=== PATIENT | male | born 1965 | race Two or more races ===

== ENCOUNTER 2019-01-21 16:11 | Inpatient (IN) | payer OTHER ==
[~2019-01-21] VITALS: Ht 172.7 cm; Wt 96.2 kg
--- NOTE | 2019-01-21 17:20 | NUR ---
Admitted from home, with previous admission from [facility]. Admitted for Right Knee arthroplasty, Osteoarthritis Right knee. Patient awake, alert x4. Not in any form of distress. Patient with original surgical dressing over right knee dry clean and intact no S/S of infection. Oriented patient about equipment and therapy. Informed Dr Jarquin of admission.
[2019-01-21] MEDS ORDERED: Z GUARD REMEDY PASTE 57 GM TUBE TOP PRN (17:30)
[2019-01-21] MEDS ORDERED: HYDR-3326 PO (17:43)
[2019-01-21] MEDS ORDERED: MULT1TAB73 PO (17:43)
[2019-01-21] MEDS ORDERED: IBUP-1955 PO (17:43)
[2019-01-21] MEDS ORDERED: FURO40TA5 PO (17:43)
[2019-01-21] MEDS ORDERED: SPIR25TA6 PO (17:43)
[2019-01-21] MEDS ORDERED: ASPI-612 PO (17:43)
[2019-01-21] MEDS ORDERED: MAGN400O6 PO (17:43)
[2019-01-21] MEDS ORDERED: ACET-2154 PO (17:43)
[2019-01-21] MEDS ORDERED: DOCU-141 PO (17:43)
[2019-01-21] MEDS ORDERED: LANS30CA54 PO (17:43)
[2019-01-21 18:28] VITALS: BP 116/74
--- NOTE | 2019-01-21 19:03 | NUR ---
Dr Tate aware of admission and requested for medication reconciliation.
[2019-01-21 20:02] VITALS: BP 138/75
[2019-01-21] MEDS: OXYCODONE HCL 5 MG TABLET PO PRN (20:21)
--- NOTE | 2019-01-21 21:43 | NUR ---
Received pt in bed, AAO x 4 watching television in bed. No acute distress noted. Verbally responsive and able to make needs known. PRN Oxyir 10 mg given as ordered by Dr. Jarquin for pain 8/10 pain scale on right knee. Tolerated well with good effect. Dr. Tate aware of med recon. All safety measures and fall precautions maintained. Call light and all personal belongings within reach. Will continue to monitor.
[2019-01-21] MEDS ORDERED: ACETAMINOPHEN 325 MG TABLET PO PRN (22:00)
[2019-01-22 05:10] VITALS: BP 120/75
[2019-01-22 08:16] VITALS: BP 121/76
[2019-01-22] MEDS: SPIRONOLACTONE 25 MG TABLET PO SCH (08:38)
[2019-01-22] MEDS: DOCUSATE SODIUM 100 MG CAPSULE PO SCH (08:38)
[2019-01-22] MEDS: FUROSEMIDE 40 MG TABLET PO SCH (08:38)
[2019-01-22] MEDS: MULTIVITAMINS,THERAPEUTIC TABLET PO SCH (08:38)
[2019-01-22] MEDS: OXYCODONE HCL 5 MG TABLET PO PRN ×2 (08:39→14:59)
[2019-01-22] MEDS: ASPIRIN 325 MG TABLET PO SCH ×2 (08:46→16:12)
--- NOTE | 2019-01-22 14:57 | NUR ---
INTERDISCIPLINARY TEAM CONFERENCE
[2019-01-22 16:51] VITALS: BP 135/67
[2019-01-22] MEDS: MAGNESIUM HYDROXIDE 30 ML LIQUID UDC PO PRN (21:03)
[2019-01-23] MEDS: OXYCODONE HCL 5 MG TABLET PO PRN ×3 (05:35→20:28)
[2019-01-23 07:12] VITALS: BP 120/71
--- NOTE | 2019-01-23 07:45 | NUR ---
Patient awake, alert, not in any form of acute distress. No complain of any pain or discomfort at this time. Assisted with his needs. Call light and frequently used items placed within reach.
[2019-01-23 07:56] LABS: BASOPHILS % (AUTO) 0.6 % (0.0-2.0); EOSINOPHILS # (AUTO) 0.2 K/uL (0.0-0.7); EOSINOPHILS % (AUTO) 4.5 % (0.0-7.0); HEMATOCRIT 29.1 % (36.7-47.1); HEMOGLOBIN 9.8 g/dL (12.5-16.3); LYMPHOCYTES # (AUTO) 1.5 K/uL (20.0-40.0); LYMPHOCYTES % (AUTO) 28.8 % (20.5-51.5); MEAN CORPUSCULAR HEMOGLOBIN 27.6 uug (23.8-33.4); MEAN CORPUSCULAR HGB CONC 34 g/dL (32.5-36.3); MONOCYTES # (AUTO) 0.9 K/uL (2.0-10.0); MONOCYTES % (AUTO) 17.4 % (0.0-11.0); NEUTROPHILS # (AUTO) 2.5 K/uL (1.8-8.9); NEUTROPHILS % (AUTO) 48.7 % (38.5-71.5); PLATELET COUNT (AUTO) 191 K/uL (152-348); RED BLOOD CELL COUNT(AUTO) 3.55 MIL/uL (4.06-5.63); WHITE BLOOD COUNT (AUTO) 5.2 K/uL (3.6-10.2)
[2019-01-23 08:11] LABS: BILIRUBIN,TOTAL 0.6 mg/dL (0.2-1.0); CREATININE 0.8 mg/dL (0.6-1.3); PHOSPHOROUS 4.3 mg/dL (2.5-4.9); POTASSIUM 4.1 mmol/L (3.5-5.1)
[2019-01-23 08:18] VITALS: BP 126/76
[2019-01-23 08:19] LABS: THYROID STIMULATING HORMONE 3.607 mIU/mL (0.358-3.740)
[2019-01-23 08:39] LABS: EOSINOPHILS % (MANUAL) 7 % (0-8); LYMPHOCYTES % (MANUAL) 30 % (20-40); MONOCYTES % (MANUAL) 12 % (2-10); NEUTROPHILS % (MANUAL) 51 % (42-75)
[2019-01-23] MEDS: SPIRONOLACTONE 25 MG TABLET PO SCH (08:57)
[2019-01-23] MEDS: FUROSEMIDE 40 MG TABLET PO SCH (08:57)
[2019-01-23] MEDS: DOCUSATE SODIUM 100 MG CAPSULE PO SCH (08:57)
[2019-01-23] MEDS: MULTIVITAMINS,THERAPEUTIC TABLET PO SCH (08:57)
[2019-01-23] MEDS: ASPIRIN 325 MG TABLET PO SCH ×2 (08:57→16:23)
[2019-01-23 18:50] VITALS: BP 121/85
[2019-01-23] MEDS: MAGNESIUM HYDROXIDE 30 ML LIQUID UDC PO PRN (20:26)
[2019-01-23] MEDS: ATORVASTATIN 10 MG TABLET PO SCH (21:07)
[2019-01-23 21:24] VITALS: BP 116/68
[2019-01-24 05:00] VITALS: BP 113/74
[2019-01-24 07:06] VITALS: BP 120/67
[2019-01-24] MEDS: DOCUSATE SODIUM 100 MG CAPSULE PO SCH (08:40)
[2019-01-24] MEDS: MULTIVITAMINS,THERAPEUTIC TABLET PO SCH (08:40)
[2019-01-24] MEDS: ASPIRIN 325 MG TABLET PO SCH ×2 (08:40→17:22)
[2019-01-24] MEDS: SPIRONOLACTONE 25 MG TABLET PO SCH (08:40)
[2019-01-24] MEDS: FUROSEMIDE 40 MG TABLET PO SCH (08:40)
[2019-01-24] MEDS: OXYCODONE HCL 5 MG TABLET PO PRN ×3 (08:40→20:38)
--- NOTE | 2019-01-24 13:44 | NUR ---
INDIVIDUALIZE OVERALL PLAN OF CARE
[2019-01-24 14:00] VITALS: BP 109/70
[2019-01-24 20:15] VITALS: BP 124/62
[2019-01-24] MEDS: MAGNESIUM HYDROXIDE 30 ML LIQUID UDC PO PRN (20:35)
[2019-01-24] MEDS: ATORVASTATIN 10 MG TABLET PO SCH (20:35)
--- NOTE | 2019-01-24 21:16 | NUR ---
Received pt resting in bed and watching TV. AAO x4. No acute distress noted. C/o 03/03 on right knee, PRN pain med and other due med given as ordered. Safety measures maintained. Call light and personal belongings within reach. Will continue to monitor.
[2019-01-25 04:53] VITALS: BP 108/67
[2019-01-25 07:46] VITALS: BP 106/59
[2019-01-25] MEDS: DOCUSATE SODIUM 100 MG CAPSULE PO SCH (08:49)
[2019-01-25] MEDS: MULTIVITAMINS,THERAPEUTIC TABLET PO SCH (08:49)
[2019-01-25] MEDS: ASPIRIN 325 MG TABLET PO SCH ×2 (08:50→17:16)
[2019-01-25] MEDS: FUROSEMIDE 40 MG TABLET PO SCH (08:50)
[2019-01-25] MEDS: SPIRONOLACTONE 25 MG TABLET PO SCH (08:50)
[2019-01-25] MEDS: OXYCODONE HCL 5 MG TABLET PO PRN ×3 (08:50→20:34)
--- NOTE | 2019-01-25 10:55 | NUR ---
Received patient in bed, alert and orientedx4. Continue on pain management oxycodone 10mg every 4 hours if needed and prior to therapy. Complaint of right knee pain scale 7/10. Oxy 10mg given with good effect. tolerated well. not in distress. will continue monitor
[2019-01-25 16:07] VITALS: BP 118/70
[2019-01-25] MEDS: ATORVASTATIN 10 MG TABLET PO SCH (20:34)
--- NOTE | 2019-01-25 21:23 | NUR ---
Received pt resting in bed. AAO x4. No acute distress noted. C/o 7/10 pain on right knee. PRN pain med and other due med given as ordered. Safety measures maintained. Call light and personal belongings within reach. Will continue to monitor.
[2019-01-25 21:28] VITALS: BP 136/83
[2019-01-26 06:15] VITALS: BP 110/65
[2019-01-26 07:30] VITALS: BP 110/67
[2019-01-26] MEDS: OXYCODONE HCL 5 MG TABLET PO PRN ×3 (07:56→20:19)
[2019-01-26] MEDS: FUROSEMIDE 40 MG TABLET PO SCH (08:00)
[2019-01-26] MEDS: SPIRONOLACTONE 25 MG TABLET PO SCH (08:00)
[2019-01-26] MEDS: ASPIRIN 325 MG TABLET PO SCH ×2 (08:00→16:51)
[2019-01-26] MEDS: MULTIVITAMINS,THERAPEUTIC TABLET PO SCH (08:00)
[2019-01-26] MEDS: DOCUSATE SODIUM 100 MG CAPSULE PO SCH (08:04)
[2019-01-26] MEDS: MAGNESIUM HYDROXIDE 30 ML LIQUID UDC PO PRN (16:54)
[2019-01-26 17:17] VITALS: BP 121/72
[2019-01-26] MEDS: ATORVASTATIN 10 MG TABLET PO SCH (20:18)
[2019-01-26 20:45] VITALS: BP 131/74
--- NOTE | 2019-01-26 21:32 | NUR ---
Received pt resting in bed. AAO x4. No acute distress noted. C/o 8/10 right knee pain. PRN pain med and other due med given as ordered. Safety measures maintained. Call light and personal belongings within reach. Will continue to monitor.
[2019-01-27 06:44] VITALS: BP 111/71
--- NOTE | 2019-01-27 07:30 | NUR ---
Patient noted resting in bed, X-Ray of right knee in progress at this time, call light in reach, bed locked and in lowest position, no complaints of pain at this time, no distress noted, all needs met at this time
[2019-01-27] MEDS: ASPIRIN 325 MG TABLET PO SCH ×2 (08:22→16:45)
[2019-01-27] MEDS: OXYCODONE HCL 5 MG TABLET PO PRN ×3 (08:23→20:08)
[2019-01-27] MEDS: FUROSEMIDE 40 MG TABLET PO SCH (08:23)
[2019-01-27] MEDS: DOCUSATE SODIUM 100 MG CAPSULE PO SCH (08:23)
[2019-01-27] MEDS: SPIRONOLACTONE 25 MG TABLET PO SCH (08:23)
[2019-01-27] MEDS: MULTIVITAMINS,THERAPEUTIC TABLET PO SCH (08:23)
[2019-01-27 08:48] VITALS: BP 123/80
[2019-01-27 17:13] VITALS: BP 114/71
--- NOTE | 2019-01-27 19:43 | NUR ---
PRN oxycodone given twice this shift, no changes,no acute distress, will endorse to shift coordinator
[2019-01-27] MEDS: ATORVASTATIN 10 MG TABLET PO SCH (20:04)
[2019-01-27 20:49] VITALS: BP 132/78
[2019-01-28] MEDS: OXYCODONE HCL 5 MG TABLET PO PRN ×3 (05:11→20:53)
[2019-01-28 06:11] VITALS: BP 116/70
[2019-01-28] MEDS: MULTIVITAMINS,THERAPEUTIC TABLET PO SCH (08:27)
[2019-01-28] MEDS: FUROSEMIDE 40 MG TABLET PO SCH (08:27)
[2019-01-28] MEDS: ASPIRIN 325 MG TABLET PO SCH ×2 (08:27→16:56)
[2019-01-28] MEDS: SPIRONOLACTONE 25 MG TABLET PO SCH (08:27)
[2019-01-28] MEDS: DOCUSATE SODIUM 100 MG CAPSULE PO SCH (08:27)
--- NOTE | 2019-01-28 09:00 | NUR ---
Received pt. in bed in no distress. A/OX4 verbally responsive and able to make his needs known. All due medications given and tolerated well. Pt. with schedule appointment with Dr. Soto (Ortho) @ 1030 AM with p/u time of 0930 from [facility]. Pt. showered this AM, covered RT. knee to protect original dressing. No new skin condition noted. All pt. needs attended and met promptly. Safety measures in place. Call light and all frequently used items within pt. reach.
[2019-01-28 09:50] VITALS: BP 113/79
--- NOTE | 2019-01-28 09:50 | NUR ---
[facility] staff on-site @ [id number], provided report with no further question from receiving staff. Provided education prior to OOP, pt. verbalized clear understanding. Pt. signed out on pass release form. Transfer packet including imaging of RT. knee provided to receiving staff and pt. Pt. left unit in stable condition @ [id number].
--- NOTE | 2019-01-28 12:39 | NUR ---
Pt. returned from out on pass visit with Dr. Soto @ [id number]. No new order from appointment. Continue to use immobilizer while in bed to encourage extension. No changes in medication. Pt. remained in stable condition, no further concern at this time. Will continue to monitor accordingly.
[2019-01-28 16:32] VITALS: BP 125/55
--- NOTE | 2019-01-28 18:20 | NUR ---
End of shift note: No significant change during this shift. All needs attended and met promptly. Rt. knee immobilizer in place. Safety measures in placed. Bed in low position, brake on, side rails up x2 as an enabler. Call light and all frequently used items within pt. reach. Will endorse to next shift accordingly
[2019-01-28] MEDS: ATORVASTATIN 10 MG TABLET PO SCH (20:53)
[2019-01-28 21:28] VITALS: BP 123/69
[2019-01-29 06:12] VITALS: BP 107/64
[2019-01-29 08:40] VITALS: BP 119/62
[2019-01-29] MEDS: ASPIRIN 325 MG TABLET PO SCH ×2 (09:53→17:57)
[2019-01-29] MEDS: MULTIVITAMINS,THERAPEUTIC TABLET PO SCH (09:54)
[2019-01-29] MEDS: FUROSEMIDE 40 MG TABLET PO SCH (09:54)
[2019-01-29] MEDS: DOCUSATE SODIUM 100 MG CAPSULE PO SCH (09:54)
[2019-01-29] MEDS: SPIRONOLACTONE 25 MG TABLET PO SCH (09:54)
[2019-01-29] MEDS: OXYCODONE HCL 5 MG TABLET PO PRN ×2 (12:00→20:46)
[2019-01-29 15:40] VITALS: BP 109/66
--- NOTE | 2019-01-29 15:48 | NUR ---
INTERDISCIPLINARY TEAM CONFERENCE
[2019-01-29 19:45] VITALS: BP 118/72
--- NOTE | 2019-01-29 19:45 | NUR ---
Patient received in bed, AAO x4. Able to make needs known. No acute distress or SOB noted. On room air. Complained of pain at right knee, rated 6/10 on numeric scale. Immobilizer on his right lower extremity. Physical assessment done. Safety measures observed. Fall precaution maintained. Bed in low position, side rails up x2 for safety, brake and alarm on. call light and personal belongings within reach. Continue to monitor.
[2019-01-29] MEDS: ATORVASTATIN 10 MG TABLET PO SCH (20:45)
[2019-01-30] MEDS: OXYCODONE HCL 5 MG TABLET PO PRN ×2 (06:50→17:18)
[2019-01-30 06:59] VITALS: BP 109/62
--- NOTE | 2019-01-30 07:11 | NUR ---
End of the shift note Patient was stable throughout the shift and has a good sleep last night. No acute distress or SOB noted. On room air. Complained of pain in his right knee. Narco 5-325 mg administered. Pain assessed and reassessed after pain medication. Ice bag provided. VS checked. All due medications given as ordered and well tolerated. All needs attended promptly. Hourly round done. Safety measures observed. Fall precaution maintained. Bed in low position, side rails up x2 for safety, brake and alarm on. call light and personal belongings within reach. Continue to monitor and will endorse to the day shift nurse accordingly.
--- NOTE | 2019-01-30 08:00 | NUR ---
Patient noted resting in bed, states pain level is 7/10, PRN pain medication to early to administer, car shifter nurse administered at 0630, no signs of distress noted, call light in reach, bed locked and in lowest position, took all AM medications
[2019-01-30 08:10] VITALS: BP 102/65
[2019-01-30] MEDS: DOCUSATE SODIUM 100 MG CAPSULE PO SCH (08:49)
[2019-01-30] MEDS: FUROSEMIDE 40 MG TABLET PO SCH (08:49)
[2019-01-30] MEDS: SPIRONOLACTONE 25 MG TABLET PO SCH (08:49)
[2019-01-30] MEDS: ASPIRIN 325 MG TABLET PO SCH ×2 (08:49→17:18)
[2019-01-30] MEDS: MULTIVITAMINS,THERAPEUTIC TABLET PO SCH (08:49)
[2019-01-30 17:15] VITALS: BP 119/69
--- NOTE | 2019-01-30 18:16 | NUR ---
PRN pain medication given once this shift in addition to ice packs for right knee pain, no acute distress noted this shift, all needs attended to
[2019-01-30 19:45] VITALS: BP 112/65
--- NOTE | 2019-01-30 19:45 | NUR ---
Patient received in bed, AAO x4. Able to make needs known. No acute distress or SOB noted. On room air. Complained of mild discomfort at his stomach. Immobilizer on his right lower extremity. Physical assessment done. Safety measures observed. Fall precaution maintained. Bed in low position, side rails up x2 for safety, brake and alarm on. call light and personal belongings within reach. Continue to monitor.
[2019-01-30] MEDS: ATORVASTATIN 10 MG TABLET PO SCH (20:39)
[2019-01-31 07:30] VITALS: BP 114/63
[2019-01-31] MEDS: MULTIVITAMINS,THERAPEUTIC TABLET PO SCH (09:10)
[2019-01-31] MEDS: SPIRONOLACTONE 25 MG TABLET PO SCH (09:10)
[2019-01-31] MEDS: DOCUSATE SODIUM 100 MG CAPSULE PO SCH (09:10)
[2019-01-31] MEDS: FUROSEMIDE 40 MG TABLET PO SCH (09:11)
[2019-01-31] MEDS: ASPIRIN 325 MG TABLET PO SCH ×2 (09:11→17:05)
[2019-01-31] MEDS: OXYCODONE HCL 5 MG TABLET PO PRN (19:20)
[2019-01-31 20:13] VITALS: BP 124/77
[2019-01-31] MEDS: ATORVASTATIN 10 MG TABLET PO SCH (20:56)
[2019-02-01 06:05] VITALS: BP 111/68
--- NOTE | 2019-02-01 09:00 | NUR ---
Received patient, awake, alert x4 resting in bed. Not in any form of distress. Surgical wound dry, healing well no S/S and open to air. Knee immobilizer in place. With pain over right knee rated as 7/10.
[2019-02-01 09:05] VITALS: BP 119/71
[2019-02-01] MEDS: ASPIRIN 325 MG TABLET PO SCH ×2 (09:06→16:13)
[2019-02-01] MEDS: FUROSEMIDE 40 MG TABLET PO SCH (09:06)
[2019-02-01] MEDS: DOCUSATE SODIUM 100 MG CAPSULE PO SCH (09:06)
[2019-02-01] MEDS: MULTIVITAMINS,THERAPEUTIC TABLET PO SCH (09:06)
[2019-02-01] MEDS: SPIRONOLACTONE 25 MG TABLET PO SCH (09:06)
[2019-02-01] MEDS: OXYCODONE HCL 5 MG TABLET PO PRN ×2 (09:08→19:13)
--- NOTE | 2019-02-01 10:00 | NUR ---
Up with occupational therapy, tolerating well. Ambulating with cane to rehab gym. With tolerable pain levels, OxyIR 10mg PRN given prior to therapy.
[2019-02-01] MEDS: MAGNESIUM HYDROXIDE 30 ML LIQUID UDC PO PRN (15:09)
--- NOTE | 2019-02-01 15:17 | NUR ---
Complained of epigastric pain, non-radiating no associated vomiting or nausea. Informed Dr Mccurdy, said to give one dose of MOM. Offered warm pack over abdominal area. With relief.
[2019-02-01 16:49] VITALS: BP 128/73
--- NOTE | 2019-02-01 19:10 | NUR ---
Busy on his cell phone at this time. No s/s of pain/discomforts. Safety measure maintained. Right knee immobilizer in placed. Continue care as planned.
[2019-02-01] MEDS: ATORVASTATIN 10 MG TABLET PO SCH (20:36)
[2019-02-01 20:48] VITALS: BP 125/72
[2019-02-02 06:51] VITALS: BP 101/64
--- NOTE | 2019-02-02 07:01 | NUR ---
Shift End Report: Slept good. VS stable. No complaint presented all night. All needs attended and met. No significant event reported. Continue current rehab plan of care.
[2019-02-02 08:12] VITALS: BP 111/74
[2019-02-02] MEDS: SPIRONOLACTONE 25 MG TABLET PO SCH (08:18)
[2019-02-02] MEDS: MULTIVITAMINS,THERAPEUTIC TABLET PO SCH (08:18)
[2019-02-02] MEDS: ASPIRIN 325 MG TABLET PO SCH ×2 (08:18→16:00)
[2019-02-02] MEDS: FUROSEMIDE 40 MG TABLET PO SCH (08:18)
[2019-02-02] MEDS: DOCUSATE SODIUM 100 MG CAPSULE PO SCH (08:18)
[2019-02-02] MEDS: OXYCODONE HCL 5 MG TABLET PO PRN ×2 (08:21→15:17)
--- NOTE | 2019-02-02 09:09 | NUR ---
Received pt. in bed in no distress. A/OX4 verbally responsive and able to make his needs known. All due medications given and tolerated well. RT. knee immobilizer in place with good circulation. C/O 6-7 P.S RT. knee pain, PRN OxyIR given as ordered. No new skin condition noted. All pt. needs attended and met promptly. Safety measures in place. Call light and all frequently used items within pt. reach. Will continue to monitor accordingly.
[2019-02-02 17:08] VITALS: BP 120/77
--- NOTE | 2019-02-02 18:11 | NUR ---
End of shift note: No significant change during this shift. All needs attended and met promptly. Safety measures in placed. Bed in low position, brake on, side rails up x2 as an enabler. Call light and all frequently used items within pt. reach. Will endorse to next shift accordingly
--- NOTE | 2019-02-02 19:10 | NUR ---
Awake on bed, watching TV. Not in distress. Denies any pain/discomforts at this time. Right leg immobilizer in used with ice pack on top. safety measure and fall precaution maintained. Continue care as planned.
[2019-02-02 19:28] VITALS: BP 119/73
[2019-02-02] MEDS: ATORVASTATIN 10 MG TABLET PO SCH (20:29)
[2019-02-03 05:45] VITALS: BP 111/61
--- NOTE | 2019-02-03 05:47 | NUR ---
Shift End Report: VSS. Slept good. No complaint presented all night. All needs attended and met. NO significant event reported. Continue current rehab plan of care.
[2019-02-03 07:25] LABS: BASOPHILS % (AUTO) 0.8 % (0.0-2.0); EOSINOPHILS # (AUTO) 0.3 K/uL (0.0-0.7); EOSINOPHILS % (AUTO) 7.2 % (0.0-7.0); HEMATOCRIT 31.2 % (36.7-47.1); HEMOGLOBIN 10.3 g/dL (12.5-16.3); LYMPHOCYTES # (AUTO) 1.5 K/uL (20.0-40.0); LYMPHOCYTES % (AUTO) 34.9 % (20.5-51.5); MEAN CORPUSCULAR HEMOGLOBIN 26.7 uug (23.8-33.4); MEAN CORPUSCULAR HGB CONC 33 g/dL (32.5-36.3); MEAN CORPUSCULAR VOLUME 81.1 fL (73.0-96.2); MONOCYTES # (AUTO) 0.6 K/uL (2.0-10.0); MONOCYTES % (AUTO) 13.3 % (0.0-11.0); NEUTROPHILS # (AUTO) 1.8 K/uL (1.8-8.9); NEUTROPHILS % (AUTO) 43.8 % (38.5-71.5); PLATELET COUNT (AUTO) 248 K/uL (152-348); RED BLOOD CELL COUNT(AUTO) 3.85 MIL/uL (4.06-5.63); WHITE BLOOD COUNT (AUTO) 4.2 K/uL (3.6-10.2)
[2019-02-03 07:39] LABS: BILIRUBIN,TOTAL 0.4 mg/dL (0.2-1.0); CREATININE 0.8 mg/dL (0.6-1.3); MAGNESIUM 1.8 mg/dL (1.8-2.4); PHOSPHOROUS 3.9 mg/dL (2.5-4.9); POTASSIUM 3.9 mmol/L (3.5-5.1)
[2019-02-03] MEDS: SPIRONOLACTONE 25 MG TABLET PO SCH (08:28)
[2019-02-03] MEDS: FUROSEMIDE 40 MG TABLET PO SCH (08:28)
[2019-02-03] MEDS: MULTIVITAMINS,THERAPEUTIC TABLET PO SCH (08:28)
[2019-02-03] MEDS: ASPIRIN 325 MG TABLET PO SCH ×2 (08:28→16:31)
[2019-02-03] MEDS: DOCUSATE SODIUM 100 MG CAPSULE PO SCH (08:28)
[2019-02-03] MEDS: OXYCODONE HCL 5 MG TABLET PO PRN ×2 (08:29→17:51)
[2019-02-03 09:06] VITALS: BP 110/58
--- NOTE | 2019-02-03 09:39 | NUR ---
Received pt. in bed in no distress. A/OX4 verbally responsive and able to make his needs known. All due medications given and tolerated well. RT. knee immobilizer in place with good circulation. C/O 10 P.S RT. knee pain, PRN OxyIR given as ordered and effective. Pt. to d/c home tomorrow, will request D/C order from and have TMS form signed. No new skin condition noted. All pt. needs attended and met promptly. Safety measures in place. Call light and all frequently used items within pt. reach. Will continue to monitor accordingly.
[2019-02-03 16:46] VITALS: BP 128/66
--- NOTE | 2019-02-03 18:09 | NUR ---
End of shift note: No significant change during this shift. Seen by Dr. Jarquin this PM. aware of pt. plan dc tomorrow 02/04/19. Per D/C OXYiR upon d/c. RX for Percocet written by , placed in chart for safekeeping. All needs attended and met promptly. Safety measures in placed. Bed in low position, brake on, side rails up x2 as an enabler. Call light and all frequently used items within pt. reach. Will endorse to next shift accordingly.
--- NOTE | 2019-02-03 19:10 | NUR ---
Sleeping during initial rounds. No s/s of pain/discomforts. Safety measure and afll precaution maintained. Continue care as planned.
[2019-02-03 19:35] VITALS: BP 117/69
[2019-02-03] MEDS: ATORVASTATIN 10 MG TABLET PO SCH (20:37)
--- NOTE | 2019-02-04 05:40 | NUR ---
Shift End Report: VS stable. Slept good. No complaint of pain/discomforts presented. All needs attended and met. No significant event reported all night. Continue current rehab plan of care.
[2019-02-04 06:29] VITALS: BP 118/69
--- NOTE | 2019-02-04 08:20 | NUR ---
Received patient, awake, alert x4. With abdominal pain, offered MOM and warm pack, with relief. No chest pains or SOB. No vomiting or nausea noted. Surgical wound dry, healing well. No S/S of infection.
[2019-02-04] MEDS: MAGNESIUM HYDROXIDE 30 ML LIQUID UDC PO PRN (08:51)
[2019-02-04] MEDS: ASPIRIN 325 MG TABLET PO SCH (08:51)
[2019-02-04] MEDS: MULTIVITAMINS,THERAPEUTIC TABLET PO SCH (08:51)
[2019-02-04] MEDS: DOCUSATE SODIUM 100 MG CAPSULE PO SCH (08:51)
[2019-02-04] MEDS: FUROSEMIDE 40 MG TABLET PO SCH (08:52)
[2019-02-04] MEDS: SPIRONOLACTONE 25 MG TABLET PO SCH (08:52)
[2019-02-04 09:00] VITALS: BP 113/73
--- NOTE | 2019-02-04 10:31 | NUR ---
Up with physical therapy, tolerating well. Ambulates with cane independently, stable. Tylenol 650 mg given prior to therapy. Dr Oakes said OK to give one dose Percocet 10/325 mg if complains of pain. Obtained discharge order from Dr. Jarquin.
[2019-02-04] MEDS ORDERED: OXYCODONE/APAP 5-325 MG TABLET PO ONE (13:15)
--- NOTE | 2019-02-04 14:30 | NUR ---
Discharge to home accompanied by transport c/o insurance, ambulatory with cane. Not in any form of distress. No pain noted. Wound clean, dry open to air, photo attached to chart. Discharge order obtained from Dr Jarquin. Instructed to take medications as prescribed. Instructed to follow up with Dr. Soto on 02/11/19 at 10:15 AM. Discharge instructions and educational packet explained to patient. Went home with [facility] C/O insurance.
== END 2019-02-04 14:30 | disposition home health service (06) | DRG 560 ==
PROVIDERS: ADMIT Physical Medicine & Rehabilitation Pain Medicine; ATTEND Physical Medicine & Rehabilitation Pain Medicine
DX: Z47.1 Aftercare following joint replacement surgery (principal); D68.59 Other primary thrombophilia; E44.0 Moderate protein-calorie malnutrition; Z96.651 Presence of right artificial knee joint; D64.9 Anemia, unspecified; I10 Essential (primary) hypertension; D69.6 Thrombocytopenia, unspecified; E78.5 Hyperlipidemia, unspecified; G89.29 Other chronic pain; Z82.3 Family history of stroke; Z82.49 Family history of ischemic heart disease and other diseases of the circulatory system; Z83.3 Family history of diabetes mellitus
CPT/HCPCS: 36415; 83550; 83735; 84100; 84443; 85025; 92526; 92610; 97110; 97112; 97116; 97165; 97530; 97535